=== PATIENT | female | born 1930 ===

== ENCOUNTER 2017-11-16 22:49 | Inpatient (IN) | payer MEDICARE, OTHER ==
[~2017-11-16] VITALS: Ht 154.9 cm; Wt 52.6 kg
[2017-11-16] MEDS ORDERED: DONE5TAB34 PO (23:53)
[2017-11-16] MEDS ORDERED: THIA100T13 PO (23:53)
[2017-11-16] MEDS ORDERED: DOCU100C36 PO (23:53)
[2017-11-16] MEDS ORDERED: GABA-532 PO (23:53)
[2017-11-16] MEDS ORDERED: UBID100C13 PO (23:53)
[2017-11-16] MEDS ORDERED: FURO-152 PO (23:53)
[2017-11-16] MEDS ORDERED: DULO60CA63 PO (23:53)
[2017-11-16] MEDS ORDERED: TRAV5DRO OP (23:53)
[2017-11-16] MEDS ORDERED: CLON0.1T PO (23:53)
[2017-11-16] MEDS ORDERED: BRIM5DRO3 OP (23:53)
[2017-11-16] MEDS ORDERED: EPIN5DRO OP (23:53)
[2017-11-16] MEDS ORDERED: VITA400C24 PO (23:53)
[2017-11-16] MEDS ORDERED: FLUT1BLS IH (23:53)
[2017-11-16] MEDS ORDERED: metoprolol PO (23:53)
[2017-11-16] MEDS ORDERED: POTA10CA43 PO (23:53)
[2017-11-16] MEDS ORDERED: MIRT15TA3 PO (23:53)
[2017-11-16] MEDS ORDERED: LIDO30AD10 TD (23:53)
[2017-11-16] MEDS ORDERED: CYAN250010 PO (23:53)
[2017-11-16] MEDS ORDERED: ASCO500C18 PO (23:53)
[2017-11-16] MEDS ORDERED: LURA40TA PO (23:53)
[2017-11-16] MEDS ORDERED: FERR325T28 PO (23:53)
[2017-11-16] MEDS ORDERED: ASPI-605 PO (23:53)
[2017-11-16] MEDS ORDERED: CRAN300T PO (23:53)
[2017-11-16] MEDS ORDERED: CALC1WAF4 PO (23:53)
[2017-11-16] MEDS ORDERED: LOSA100T15 PO (23:53)
[2017-11-16] MEDS ORDERED: DENO60DI SQ (23:53)
[2017-11-16] MEDS ORDERED: OMEP20CA10 PO (23:53)
[2017-11-16] MEDS ORDERED: CYCL30DR OP (23:53)
[2017-11-16] MEDS ORDERED: VIT1CAPS9 PO (23:53)
[2017-11-17] MEDS ORDERED: TEMAZEPAM 7.5 MG CAPSULE PO PRN (00:15)
[2017-11-17] MEDS ORDERED: MAG HYDROX/AL HYDROX/SIMETH 30 ML LIQUID UDC PO PRN (00:15)
[2017-11-17] MEDS ORDERED: MAGNESIUM HYDROXIDE 30 ML LIQUID UDC PO PRN (00:15)
[2017-11-17] MEDS ORDERED: LORAZEPAM 0.5 MG TABLET PO PRN (00:15)
[2017-11-17 00:30] VITALS: BP 146/83
[2017-11-17] MEDS ORDERED: MECL-102 PO (04:38)
[2017-11-17] MEDS ORDERED: NITR0.4T SL (04:38)
[2017-11-17] MEDS ORDERED: ALBU18HF2 IH (04:38)
[2017-11-17] MEDS ORDERED: CHOL50004 PO (04:38)
[2017-11-17] MEDS ORDERED: BELL30LI PO (04:38)
[2017-11-17] MEDS ORDERED: LORA10TA7 PO (04:38)
[2017-11-17] MEDS ORDERED: ACET-2154 PO (04:38)
[2017-11-17] MEDS ORDERED: ALBU0.63 IH (04:38)
[2017-11-17] MEDS ORDERED: METO-295 PO (04:38)
[2017-11-17] MEDS ORDERED: OXYC5TAB3 PO (04:38)
[2017-11-17] MEDS ORDERED: LOPE2CAP40 PO (04:38)
[2017-11-17] MEDS ORDERED: TRAM50TA2 PO (04:38)
[2017-11-17] MEDS ORDERED: SUMA100T16 PO (04:38)
[2017-11-17 07:30] VITALS: BP 171/79
[2017-11-17] MEDS ORDERED: METO25TA6 PO (08:12)
[2017-11-17] MEDS: ACETAMINOPHEN 325 MG TABLET PO PRN ×2 (09:08→20:34)
[2017-11-17] MEDS ORDERED: CLONIDINE HCL 0.1 MG TABLET PO PRN (12:45)
[2017-11-17] MEDS ORDERED: OXYCODONE HCL 5 MG TABLET PO PRN (12:45)
[2017-11-17] MEDS ORDERED: SUMATRIPTAN SUCCINATE 50 MG TABLET PO PRN (13:15)
[2017-11-17] MEDS: DULOXETINE 60 MG CAPSULE.DR PO SCH ×2 (15:00→16:42)
[2017-11-17] MEDS: DONEPEZIL 5 MG TABLET PO SCH (16:42)
[2017-11-17] MEDS: BETA CAROTENE/VIT C & E/MIN TABLET PO SCH (16:43)
[2017-11-17] MEDS: DOCUSATE SODIUM 100 MG CAPSULE PO SCH (16:43)
[2017-11-17] MEDS: [UNRECOGNIZED DRUG - OTHER] EACHEYE SCH (16:44)
[2017-11-17 16:47] VITALS: BP 180/65
[2017-11-17] MEDS ORDERED: Medication Not On Formulary EA (Vit A/Vit C/Vit E/Zinc/Copper (Preservision Areds Softge PO SCH (17:00)
[2017-11-17] MEDS: SALONPAS TOP PRN (18:34)
[2017-11-17 20:09] VITALS: BP 155/71
[2017-11-17] MEDS: GABAPENTIN 100 MG CAPSULE PO SCH (20:33)
[2017-11-17] MEDS: MIRTAZAPINE 15 MG TABLET PO SCH (20:33)
[2017-11-17] MEDS: METOPROLOL TARTRATE 25 MG TABLET PO SCH (20:34)
[2017-11-17] MEDS: LATUDA 20 MG PO SCH (20:34)
[2017-11-17] MEDS: TRAVATAN Z EACHEYE SCH (20:35)
[2017-11-17] MEDS ORDERED: LATANOPROST OPHT DROP 2.5 ML BOTTLE EACHEYE SCH (21:00)
[2017-11-17] MEDS ORDERED: Medication Not On Formulary EA (Travoprost (Travatan Z) 5 ML) OP SCH (21:00)
[2017-11-18 07:28] LABS: BASOPHILS # (AUTO) 0.1 K/uL (0.0-8.0); BASOPHILS % (AUTO) 0.8 % (0.0-2.0); EOSINOPHILS # (AUTO) 0.2 K/uL (0.0-0.7); HEMATOCRIT 34.8 % (31.2-41.9); HEMOGLOBIN 11.4 g/dL (10.9-14.3); LYMPHOCYTES # (AUTO) 0.9 K/uL (20.0-40.0); LYMPHOCYTES % (AUTO) 14.7 % (20.5-51.5); MEAN CORPUSCULAR HEMOGLOBIN 30.5 uug (24.7-32.8); MEAN CORPUSCULAR HGB CONC 33 g/dL (32.3-35.6); MEAN CORPUSCULAR VOLUME 93.4 fL (75.5-95.3); MONOCYTES # (AUTO) 0.7 K/uL (2.0-10.0); MONOCYTES % (AUTO) 10.9 % (0.0-11.0); NEUTROPHILS # (AUTO) 4.3 K/uL (1.8-8.9); NEUTROPHILS % (AUTO) 69.6 % (38.5-71.5); PLATELET COUNT (AUTO) 174 K/uL (179-408); RED BLOOD CELL COUNT(AUTO) 3.72 MIL/uL (3.63-4.92); WHITE BLOOD COUNT (AUTO) 6.2 K/uL (3.8-11.8)
[2017-11-18 07:30] VITALS: BP 160/72
[2017-11-18 07:45] LABS: ALANINE AMINOTRANSFERASE 30 U/L (14-59); ALKALINE PHOSPHATASE 53 U/L (50-136); ASPARTATE AMINOTRANSFERASE 24 U/L (15-37); BILIRUBIN,TOTAL 0.6 mg/dL (0.2-1.0); CARBON DIOXIDE 27 mmol/L (21-32); CHLORIDE 104 mmol/L (98-107); CHOLESTEROL 175 mg/dL (<200); CREATININE 0.9 mg/dL (0.6-1.3); GLUCOSE 95 mg/dL (74-106); HDL CHOLESTEROL 52 mg/dL (40-60); MAGNESIUM 2.2 mg/dL (1.8-2.4); PHOSPHOROUS 3.2 mg/dL (2.5-4.9); POTASSIUM 4.3 mmol/L (3.5-5.1); TOTAL PROTEIN, SERUM 7.6 g/dL (6.4-8.2); TRIGLYCERIDES 145 MG/DL (30-150); UREA NITROGEN, BLOOD 18 mg/dL (7-18)
[2017-11-18] MEDS: DONEPEZIL 5 MG TABLET PO SCH ×2 (08:26→17:43)
[2017-11-18] MEDS: METOPROLOL TARTRATE 25 MG TABLET PO SCH ×2 (08:26→20:25)
[2017-11-18] MEDS: DOCUSATE SODIUM 100 MG CAPSULE PO SCH ×2 (08:27→17:43)
[2017-11-18] MEDS: ASPIRIN EC 81 MG TABLET.DR PO SCH (08:27)
[2017-11-18] MEDS: FERROUS SULFATE 325 MG TABEC PO SCH (08:27)
[2017-11-18] MEDS: LOSARTAN POTASSIUM 50 MG TABLET PO SCH (08:27)
[2017-11-18] MEDS: BETA CAROTENE/VIT C & E/MIN TABLET PO SCH ×2 (08:30→17:44)
[2017-11-18] MEDS: [UNRECOGNIZED DRUG - OTHER] EACHEYE SCH ×2 (08:30→17:49)
[2017-11-18] MEDS: DULOXETINE 60 MG CAPSULE.DR PO SCH ×2 (08:35→17:44)
[2017-11-18 08:42] LABS: THYROID STIMULATING HORMONE 1.615 mIU/mL (0.358-3.740)
[2017-11-18] MEDS ORDERED: Medication Not On Formulary EA (Ascorbic Acid (Vitamin C) 1,000 MG) PO SCH (09:00)
[2017-11-18] MEDS ORDERED: CHOLECALCIFEROL 1,000 UNIT TABLET PO SCH (09:00)
[2017-11-18] MEDS ORDERED: LIDOCAINE 5% PATCH TD SCH (09:00)
[2017-11-18] MEDS ORDERED: POTASSIUM CHLORIDE 10 MEQ TAB.PRT.SR PO SCH (09:00)
[2017-11-18] MEDS ORDERED: FUROSEMIDE 20 MG TABLET PO SCH (09:00)
[2017-11-18] MEDS ORDERED: ASCORBIC ACID 500 MG TABLET PO SCH (09:00)
[2017-11-18] MEDS ORDERED: CYANOCOBALAMIN 2500 MCG PO SCH (09:00)
[2017-11-18] MEDS ORDERED: CYANOCOBALAMIN 1,000 MCG TABLET PO SCH (09:00)
[2017-11-18] MEDS ORDERED: Medication Not On Formulary EA (Losartan Potassium 100 MG) PO SCH (09:00)
[2017-11-18] MEDS ORDERED: THIAMINE HCL 100 MG TABLET PO SCH (09:00)
[2017-11-18] MEDS ORDERED: FLUTICASONE/VILANTEROL 1 EACH BLST.W.DEV IH SCH (09:00)
[2017-11-18] MEDS ORDERED: VITAMIN E 400 UNITS CAPSULE PO SCH (09:00)
[2017-11-18] MEDS: ACETAMINOPHEN 325 MG TABLET PO PRN (13:22)
[2017-11-18 17:06] VITALS: BP 162/68
[2017-11-18] MEDS: SALONPAS TOP PRN (19:23)
[2017-11-18] MEDS: MIRTAZAPINE 15 MG TABLET PO SCH (20:24)
[2017-11-18] MEDS: GABAPENTIN 100 MG CAPSULE PO SCH (20:24)
[2017-11-18] MEDS: TRAVATAN Z EACHEYE SCH (20:25)
[2017-11-18] MEDS: LATUDA 20 MG PO SCH (20:26)
[2017-11-18 21:40] VITALS: BP 167/64
[2017-11-19 07:30] VITALS: BP 174/79
[2017-11-19] MEDS: DOCUSATE SODIUM 100 MG CAPSULE PO SCH ×2 (08:22→17:52)
[2017-11-19] MEDS: DONEPEZIL 5 MG TABLET PO SCH ×2 (08:22→17:52)
[2017-11-19] MEDS: ACETAMINOPHEN 325 MG TABLET PO PRN (08:22)
[2017-11-19] MEDS: ASPIRIN EC 81 MG TABLET.DR PO SCH (08:22)
[2017-11-19] MEDS: METOPROLOL TARTRATE 25 MG TABLET PO SCH ×2 (08:22→21:05)
[2017-11-19] MEDS: BETA CAROTENE/VIT C & E/MIN TABLET PO SCH ×2 (08:23→17:52)
[2017-11-19] MEDS: LOSARTAN POTASSIUM 50 MG TABLET PO SCH (08:23)
[2017-11-19] MEDS: FERROUS SULFATE 325 MG TABEC PO SCH (08:23)
[2017-11-19] MEDS: DULOXETINE 60 MG CAPSULE.DR PO SCH ×2 (08:23→17:52)
[2017-11-19] MEDS: [UNRECOGNIZED DRUG - OTHER] EACHEYE SCH ×2 (08:24→17:54)
[2017-11-19 10:58] VITALS: BP 144/77
[2017-11-19 16:05] VITALS: BP 138/67
[2017-11-19] MEDS: MIRTAZAPINE 15 MG TABLET PO SCH (21:03)
[2017-11-19] MEDS: GABAPENTIN 100 MG CAPSULE PO SCH (21:03)
[2017-11-19] MEDS: LATUDA 20 MG PO SCH (21:06)
[2017-11-19] MEDS: TRAVATAN Z EACHEYE SCH (21:06)
[2017-11-19 21:51] VITALS: BP 129/71
[2017-11-20 07:30] VITALS: BP 158/67
[2017-11-20] MEDS: ASPIRIN EC 81 MG TABLET.DR PO SCH (08:40)
[2017-11-20] MEDS: METOPROLOL TARTRATE 25 MG TABLET PO SCH ×2 (08:40→20:26)
[2017-11-20] MEDS: DOCUSATE SODIUM 100 MG CAPSULE PO SCH ×2 (08:40→16:56)
[2017-11-20] MEDS: FERROUS SULFATE 325 MG TABEC PO SCH (08:40)
[2017-11-20] MEDS: BETA CAROTENE/VIT C & E/MIN TABLET PO SCH ×2 (08:41→16:56)
[2017-11-20] MEDS: DONEPEZIL 5 MG TABLET PO SCH ×2 (08:41→16:56)
[2017-11-20] MEDS: DULOXETINE 60 MG CAPSULE.DR PO SCH ×2 (08:41→16:56)
[2017-11-20] MEDS: LOSARTAN POTASSIUM 50 MG TABLET PO SCH (08:41)
[2017-11-20] MEDS: [UNRECOGNIZED DRUG - OTHER] EACHEYE SCH ×2 (08:43→16:58)
[2017-11-20] MEDS: ACETAMINOPHEN 325 MG TABLET PO PRN (13:20)
[2017-11-20 15:52] VITALS: BP 138/71
[2017-11-20 20:20] VITALS: BP 167/67
[2017-11-20] MEDS: TRAVATAN Z EACHEYE SCH (20:24)
[2017-11-20] MEDS: GABAPENTIN 100 MG CAPSULE PO SCH (20:24)
[2017-11-20] MEDS: MIRTAZAPINE 15 MG TABLET PO SCH (20:25)
[2017-11-20] MEDS: LATUDA 20 MG PO SCH (20:27)
[2017-11-21 07:30] VITALS: BP 171/72
[2017-11-21] MEDS: DOCUSATE SODIUM 100 MG CAPSULE PO SCH (09:00)
[2017-11-21] MEDS: METOPROLOL TARTRATE 25 MG TABLET PO SCH (09:00)
[2017-11-21] MEDS: ASPIRIN EC 81 MG TABLET.DR PO SCH (09:01)
[2017-11-21] MEDS: LOSARTAN POTASSIUM 50 MG TABLET PO SCH (09:01)
[2017-11-21] MEDS: DONEPEZIL 5 MG TABLET PO SCH (09:01)
[2017-11-21] MEDS: FERROUS SULFATE 325 MG TABEC PO SCH (09:01)
[2017-11-21] MEDS: [UNRECOGNIZED DRUG - OTHER] EACHEYE SCH (09:02)
[2017-11-21] MEDS: DULOXETINE 60 MG CAPSULE.DR PO SCH (09:03)
[2017-11-21] MEDS: BETA CAROTENE/VIT C & E/MIN TABLET PO SCH (09:03)
[2017-11-21 10:15] VITALS: BP 148/66
== END 2017-11-21 11:00 | disposition home health service (06) | DRG 885 ==
LOC: ER 22:53 → GPS 23:50
PROVIDERS: ADMIT Psychiatry & Neurology Psychiatry; ATTEND Internal Medicine
DX: F33.3 Major depressive disorder, recurrent, severe with psychotic symptoms (principal); I11.0 Hypertensive heart disease with heart failure; I50.33 Acute on chronic diastolic (congestive) heart failure; F03.90 Unspecified dementia, unspecified severity, without behavioral disturbance, psychotic disturbance, mood disturbance, and anxiety; I08.3 Combined rheumatic disorders of mitral, aortic and tricuspid valves; D50.9 Iron deficiency anemia, unspecified; D69.6 Thrombocytopenia, unspecified; M19.90 Unspecified osteoarthritis, unspecified site; F41.9 Anxiety disorder, unspecified; I48.91 Unspecified atrial fibrillation; K21.9 Gastro-esophageal reflux disease without esophagitis; H40.9 Unspecified glaucoma; Z95.0 Presence of cardiac pacemaker; Z95.2 Presence of prosthetic heart valve; Z86.73 Personal history of transient ischemic attack (TIA), and cerebral infarction without residual deficits; Z79.899 Other long term (current) drug therapy; Z88.6 Allergy status to analgesic agent; Z88.1 Allergy status to other antibiotic agents; Z88.0 Allergy status to penicillin; Z88.2 Allergy status to sulfonamides; Z87.11 Personal history of peptic ulcer disease; Z87.440 Personal history of urinary (tract) infections
CPT/HCPCS: 36415; 71045; 82652; 83735; 84100; 84443; 85025; 93005; 93307; A4663